=== PATIENT | male | born 1960 | race Caucasian/White ===

== ENCOUNTER 2025-05-13 11:34 | Emergency (ER) | payer OTHER ==
[2025-05-13 11:46] VITALS: BP 152/88; PULSE 79; RESP 20; TEMP 98.6; BMI 27.6
== END 2025-05-13 14:20 | disposition home or self-care (01) ==
LOC: JERFT 11:34
DX: S02.2XXA Fracture of nasal bones, initial encounter for closed fracture (principal); Y04.8XXA Assault by other bodily force, initial encounter
CPT/HCPCS: 70486-TC; 99284-25